=== PATIENT | female | born 1995 | race Caucasian/White ===

== ENCOUNTER 2019-03-07 18:51 | Emergency (ER) | payer BC ==
[2019-03-07] MEDS ORDERED: Ondansetron 4 MG/2 ML SDV IVPUSH ONE (19:03)
[2019-03-07] MEDS ORDERED: Ketorolac 30 MG/ML SDV IVPUSH ONE (19:03)
[2019-03-07] MEDS ORDERED: Sodium Chloride 0.9% 1,000 ML IV ONE (19:03)
--- NOTE | 2019-03-07 19:14 | EDM.PDOC ---
ED HPI GENERAL MEDICAL PROBLEM - General Chief Complaint: Gastrointestinal Problem Stated Complaint: HEADACHE Time Seen by Provider: 03/07/19 18:53 Source of Information: Reports: Patient History Limitations: Reports: No Limitations - History of Present Illness INITIAL COMMENTS - FREE TEXT/NARRATIVE: HISTORY AND PHYSICAL: History of present illness: Patient is a 23-year-old female presents to the ED today with concern of a headache since this morning. Patient states she tried to smoke marijuana to help with her headache but this did not help. Patient states she did use cocaine last night. Patient states that she has had headaches in the past but today is one of the worse than usual because she feels nauseous. Patient states she has not taken any other medication for her symptoms. Patient denies any other associated symptoms or any other symptoms or concerns. Patient denies fever, chills, chest pain, shortness of breath, or cough. Denies neck stiff ness, change in vision, syncope, or near syncope. Denies vomiting, abdominal pain, diarrhea, constipation, or dysuria. Has not noted any blood in urine or stool. Patient has been eating and drinking appropriately. Review of systems: As per history of present illness and below otherwise all systems reviewed and negative. Past medical history: As per history of present illness and as reviewed below otherwise noncontributory. Surgical history: As per history of present illness and as reviewed below otherwise noncontributory. Social history: See social history for further information Family history: As per history of present illness and as reviewed below otherwise noncontributory. Physical exam: General: Patient is alert, oriented, and in no acute distress. Patient sitting comfortably on exam table. HEENT: Atraumatic, normocephalic, pupils equal and reactive bilaterally, negative for conjunctival pallor or scleral icterus, mucous membranes moist, TMs normal bilaterally, throat clear, neck supple, nontender, trachea midline. No drooling or trismus noted. No meningeal signs. No hot potato voice noted. Lungs: Clear to auscultation, breath sounds equal bilaterally, chest nontender. Heart: S1S2, regular rate and rhythm without overt murmur Abdomen: Soft, nondistended, nontender. Negative for masses or hepatosplenomegaly. Negative for costovertebral tenderness. Pelvis: Stable nontender. Genitourinary: Deferred. Rectal: Deferred. Skin: Intact, warm, dry. No lesions or rashes noted. Extremities: Atraumatic, negative for cords or calf pain. Neurovascular unremarkable. Neuro: Awake, alert, oriented. Cranial nerves II through XII unremarkable. Cerebellum unremarkable. Motor and sensory unremarkable throughout. Exam nonfocal. Notes: patient expresses resolution of symptoms with therapeutics today in ED. Discussed the importance for follow-up with a primary care provider. Voices understanding and is agreeable to plan of care. Denies any further questions or concerns at this time. Diagnostics: Head CT Therapeutics: NS, Toradol, Zofran Prescription: None Impression: Headache Plan: 1. Encourage small but frequent sips of fluid to prevent dehydration. Stop using drugs. 2. Follow-up with her primary care provider as discussed. 3. You can alternate ibuprofen and Tylenol as directed for pain and discomfort. 4. Return to the ED as needed and as discussed. Definitive disposition and diagnosis as appropriate pending reevaluation and review of above. headache Pain Score (Numeric/FACES): 10 - Related Data Allergies Allergy/AdvReac Type Severity Reaction Status Date / Time No Known Allergies Allergy Verified 03/07/19 18:52 Home Meds: Home Meds . [No Known Home Meds] 03/07/19 [History] Past Medical History - Past Health History Medical/Surgical History: Denies Medical/Surgical History - Infectious Disease History Infectious Disease History: Reports: None Social & Family History - Family History Family Medical History: Noncontributory - Tobacco Use Smoking Status *Q: Current Every Day Smoker Years of Tobacco use: 12 Packs/Tins Daily: 1 - Recreational Drug Use Recreational Drug Use: Yes Recreational Drug Type: Reports: Marijuana/Hashish ED ROS GENERAL - Review of Systems Review Of Systems: Comprehensive ROS is negative, except as noted in HPI. ED EXAM, GENERAL - Physical Exam Exam: See Below (see dictation) Course - Vital Signs Last Recorded V/S: Last Vital Signs Temp 97.1 F 03/07/19 18:53 Pulse 119 H 03/07/19 18:53 Resp 18 03/07/19 18:53 BP 134/89 03/07/19 18:53 Pulse Ox 99 03/07/19 18:53 - Orders/Labs/Meds Orders: Active Orders 24 hr Category Date Time Status Sodium Chloride 0.9% [Normal Saline] 1,000 ml Med 03/07/19 19:03 Active IV STAT Medication Orders Sodium Chloride (Normal Saline) 1,000 mls @ 999 mls/hr IV STAT ONE Stop: 03/07/19 20:03 Last Admin: 03/07/19 19:47 Dose: 999 mls/hr Labs: Laboratory Tests 03/07/19 03/07/19 Range/Units 19:05 19:05 Urine Color YELLOW Urine Appearance CLEAR Urine pH 7.5 (5.0-8.0) Ur Specific Bieber 1.015 (1.001-1.035) Urine Protein NEGATIVE (NEGATIVE) mg/dL Urine Glucose (UA) NEGATIVE (NEGATIVE) mg/dL Urine Ketones NEGATIVE (NEGATIVE) mg/dL Urine Occult Blood NEGATIVE (NEGATIVE) Urine Nitrite NEGATIVE (NEGATIVE) Urine Bilirubin NEGATIVE (NEGATIVE) Urine Urobilinogen 0.2 (<2.0) EU/dL Ur Leukocyte Esterase NEGATIVE (NEGATIVE) Urine HCG, Qual NEGATIVE (NEGATIVE) Meds: Medications Generic Name Dose Route Start Last Admin Trade Name Freq PRN Reason Stop Dose Admin Sodium Chloride 1,000 mls @ 999 mls/hr 03/07/19 19:03 03/07/19 19:47 Normal Saline IV 03/07/19 20:03 999 mls/hr STAT ONE Administration Discontinued Medications Generic Name Dose Route Start Last Admin Trade Name Freq PRN Reason Stop Dose Admin Ketorolac Tromethamine 30 mg 03/07/19 19:03 03/07/19 19:47 Toradol IVPUSH 03/07/19 19:04 30 mg ONETIME ONE Administration Ondansetron HCl 4 mg 03/07/19 19:03 03/07/19 19:47 Zofran IVPUSH 03/07/19 19:04 4 mg ONETIME ONE Administration Departure - Departure Time of Disposition: 19:59 Disposition: Home, Self-Care 01 Clinical Impression: Headache Qualifiers: Headache type: unspecified Headache chronicity pattern: acute headache Intractability: not intractable Qualified Code(s): R51 - Headache - Discharge Information Referrals: PCP,None [Primary Care Provider] - Forms: ED Department Discharge Additional Instructions: The following information is given to patients seen in the emergency department who are being discharged to home. This information is to outline your options for follow-up care. We provide all patients seen in our emergency department with a follow-up referral. The need for follow-up, as well as the timing and circumstances, are variable depending upon the specifics of your emergency department visit. If you don't have a primary care physician on staff, we will provide you with a referral. We always advise you to contact your personal physician following an emergency department visit to inform them of the circumstance of the visit and for follow-up with them and/or the need for any referrals to a consulting specialist. The emergency department will also refer you to a specialist when appropriate. This referral assures that you have the opportunity for follow-up care with a specialist. All of these measure are taken in an effort to provide you with optimal care, which includes your follow-up. Under all circumstances we always encourage you to contact your private physician who remains a resource for coordinating your care. When calling for follow-up care, please make the office aware that this follow-up is from your recent emergency room visit. If for any reason you are refused follow-up, please contact the [facility] Emergency Department at and asked to speak to the emergency department charge nurse. [facility] [address] [place] [id number] [place] [address] 1. Encourage small but frequent sips of fluid to prevent dehydration. Stop using drugs. 2. Follow-up with her primary care provider as discussed. 3. You can alternate ibuprofen and Tylenol as directed for pain and discomfort. 4. Return to the ED as needed and as discussed. - My Orders Last 24 Hours: My Active Orders 03/07/19 19:03 Sodium Chloride 0.9% [Normal Saline] 1,000 ml IV STAT - Assessment/Plan Last 24 Hours: My Active Orders 03/07/19 19:03 Sodium Chloride 0.9% [Normal Saline] 1,000 ml IV STAT
--- NOTE | 2019-03-07 19:48 | CT ---
INDICATION: Headache, nausea, chronic headaches TECHNIQUE: CT head without contrast. COMPARISON: None FINDINGS: CSF spaces: Within normal limits for age. Brain parenchyma: The nino-white differentiation is normal. No sign of mass, hemorrhage, or midline shift. Skull base and calvarium: The visualized paranasal sinuses and mastoid air cells demonstrate no acute or significant findings. The visualized orbits are grossly unremarkable. No skull fractures. IMPRESSION: Unremarkable noncontrast head CT. Please note that all CT scans at this facility use dose modulation, iterative reconstruction, and/or weight-based dosing when appropriate to reduce radiation dose to as low as reasonably achievable. Dictated by Brenna Mason MD @ Mar 07 2019 7:46PM Signed by Dr. Brenna Mason @ Mar 07 2019 7:46PM
== END 2019-03-07 20:36 | disposition home or self-care (01) ==
LOC: MW.ED 18:51
DX: R51 Headache (principal); F17.210 Nicotine dependence, cigarettes, uncomplicated
CPT/HCPCS: 70450; 81003; 81025; 96361; 96374; 96375; 99284; J1885; J2405; J7040; 99283

== ENCOUNTER 2019-07-31 23:36 | Emergency (ER) | payer BC ==
--- NOTE | 2019-08-01 00:06 | EDM.PDOCBH ---
ED [facility] GENERAL MEDICAL PROBLEM - General Chief Complaint: Behavioral/Psych Stated Complaint: MENTAL ISSUES Time Seen by Provider: 08/01/19 00:04 Source of Information: Reports: Patient, Police History Limitations: Reports: Intoxication - History of Present Illness INITIAL COMMENTS - FREE TEXT/NARRATIVE: Patient is 23-year-old female with past medical history of asthma presenting with a chief complaint of alcohol intoxication. Patient here is under police custody but is not under arrest. The police were called due to patient's level of responsiveness and alcohol intoxication. Patient admits to drinking 1 pint of whiskey tonight prior to arrival. Patient denies any drug use. Patient states she feels fine and wants to go home and be with her dog. According to the police, the patient made general comments about wanting to kill herself and their presence. Patient is currently denying any suicidal or homicidal ideations. She states that she drinks every day and has been trying to wean herself off. Pmhx: Asthma Pshx: None Family Hx: noncontributory Smoking history? no Etoh use? Daily Drug use? none In addition to that documented in the HPI above, the additional ROS was obtained : Constitutional: Denies fevers or chills Eyes: Denies vision changes ENMT: Denies sore throat CV: Denies chest pain Resp: Denies SOB GI: Denies vomiting or diarrhea : Denies painful urination MSK: Denies recent trauma Skin: Denies new rashes Neuro: Denies new numbness or tingling or weakness Endocrine: Denies unexpected weight loss Heme: Denies bleeding disorders I have reviewed the triage vital signs Const: Patient is tearful and slurring her speech, smells of alcohol Eyes: PERRL, no conjunctival injection HENT: NCAT, Neck supple without meningismus CV: RRR, Warm, well-perfused extremities RESP: CTAB, Unlabored respiratory effort GI: soft, non-tender, non-distended, no masses MSK: No gross deformities appreciated Skin: Warm, dry. No rashes Neuro: Alert, director decision support II-XII grossly intact. Sensation and motor function of extremities grossly intact. Psych: Tearful but answering appropriately Assessment and plan: Patient 23-year-old female presenting with alcohol intoxication. Patient observed in the emergency room for 6 hours. No labs performed as not indicated based on patient presentation. Patient is now awake alert and oriented walking with steady gait. Patient is denying any suicidal or homicidal ideations. Patient feels well and has no complaints at this time. Patient will be discharged with please take her home to her house. - Related Data Allergies Allergy/AdvReac Type Severity Reaction Status Date / Time No Known Allergies Allergy Verified 07/31/19 23:46 Home Meds: Home Meds . [No Known Home Meds] 03/07/19 [History] Past Medical History - Past Health History Medical/Surgical History: Denies Medical/Surgical History - Infectious Disease History Infectious Disease History: Reports: None Social & Family History - Family History Family Medical History: Noncontributory - Tobacco Use Smoking Status *Q: Current Every Day Smoker Years of Tobacco use: 13 Packs/Tins Daily: 1.5 - Caffeine Use Caffeine Use: Reports: None - Alcohol Use Days Per Week of Alcohol Use: 7 Number of Drinks Per Day: 12 Total Drinks Per Week: 84 - Recreational Drug Use Recreational Drug Use: Yes Recreational Drug Type: Reports: Marijuana/Hashish ED ROS GENERAL - Review of Systems Review Of Systems: See Below ED EXAM, BEHAVIORAL HEALTH - Physical Exam Exam: See Below COURSE, BEHAVIORAL HEALTH COMP - Course Vital Signs: Last Vital Signs Temp 36.6 C 07/31/19 23:41 Pulse 99 08/01/19 05:40 Resp 18 08/01/19 05:40 BP 120/79 08/01/19 05:40 Pulse Ox 99 08/01/19 05:40 Departure - Departure Time of Disposition: 05:26 Disposition: Home, Self-Care 01 Clinical Impression: Alcohol abuse - Discharge Information Instructions: Alcohol Use Disorder Referrals: PCP,None [Primary Care Provider] - Forms: ED Department Discharge Additional Instructions: The following information is given to patients seen in the emergency department who are being discharged to home. This information is to outline your options for follow-up care. We provide all patients seen in our emergency department with a follow-up referral. The need for follow-up, as well as the timing and circumstances, are variable depending upon the specifics of your emergency department visit. If you don't have a primary care physician on staff, we will provide you with a referral. We always advise you to contact your personal physician following an emergency department visit to inform them of the circumstance of the visit and for follow-up with them and/or the need for any referrals to a consulting specialist. The emergency department will also refer you to a specialist when appropriate. This referral assures that you have the opportunity for follow-up care with a specialist. All of these measure are taken in an effort to provide you with optimal care, which includes your follow-up. Under all circumstances we always encourage you to contact your private physician who remains a resource for coordinating your care. When calling for follow-up care, please make the office aware that this follow-up is from your recent emergency room visit. If for any reason you are refused follow-up, please contact the [facility] Emergency Department at and asked to speak to the emergency department charge nurse. Sepsis Event Note - Evaluation Sepsis Screening Result: No Definite Risk - Focused Exam Vital Signs: Vital Signs Temp Pulse Resp BP Pulse Ox 08/01/19 05:40 99 18 120/79 99 08/01/19 04:00 100 119/74 08/01/19 03:00 103 H 16 116/80 99 08/01/19 02:00 100 16 121/78 99 07/31/19 23:41 36.6 C 134 H 20 133/82 99 Date Exam was Performed: 08/01/19 Time Exam was Performed: 05:55
== END 2019-08-01 05:44 | disposition home or self-care (01) ==
LOC: MW.ED 23:36
DX: F10.129 Alcohol abuse with intoxication, unspecified (principal); F17.210 Nicotine dependence, cigarettes, uncomplicated
CPT/HCPCS: 99282; 99283

== ENCOUNTER 2021-09-04 10:52 | Emergency (ER) | payer BC ==
[2021-09-04 12:23] LABS: BLOOD UREA NITROGEN,BUN 11 mg/dL (7.0-18.0); CARBON DIOXIDE,CO2 24.9 mmol/L (21.0-32.0); CHLORIDE,CL 104 mmol/L (98-107); GLUCOSE RANDOM 81 mg/dL (74-106); POTASSIUM,K 3.7 mmol/L (3.5-5.1); SODIUM,NA 139 mmol/L (136-145)
== END 2021-09-04 13:32 | disposition home or self-care (01) ==
LOC: MW.ED 10:52
DX: N93.9 Abnormal uterine and vaginal bleeding, unspecified (principal); Z91.040 Latex allergy status
CPT/HCPCS: 36415; 80053; 81001; 81025; 85025; 99284

== ENCOUNTER 2024-02-27 19:24 | Emergency (ER) | payer BC, OTHER ==
[2024-02-27] MEDS: Dexamethasone 4 MG Tab PO ONE (19:49)
[2024-02-27] MEDS: Ketorolac 30 MG/ML SDV IM ONE (19:49)
[2024-02-27] MEDS: Amoxicillin 500 MG Cap PO ONE (20:56)
[2024-02-27 21:30] LABS: CORONAVIRUS COVID-19 NAA NEGATIVE (NEGATIVE); INFLUENZA A NAA NEGATIVE (NEGATIVE); INFLUENZA B NAA NEGATIVE (NEGATIVE)
== END 2024-02-27 21:01 | disposition home or self-care (01) ==
LOC: MW.ED 19:24
DX: J02.0 Streptococcal pharyngitis (principal); Z91.040 Latex allergy status; Z79.2 Long term (current) use of antibiotics; Z79.899 Other long term (current) drug therapy
CPT/HCPCS: 0240U; 87651; 96372; 99283; A9270; J1885; J8540